=== PATIENT | male | born 1960 | race Caucasian/White ===

== ENCOUNTER 2018-10-24 11:19 | Emergency (ER) | payer OTHER ==
[~2018-10-24] VITALS: Wt 91.9 kg
[~2018-10-24 11:19] MED LIST: IBUP800T48
[2018-10-24 11:21] VITALS: BP 131/78; PULSE 60; RESP 18
--- NOTE | 2018-10-24 12:42 | ERD ---
ER Documentation Chief Complaint Chief Complaint BACK PAIN HPI 58-year-old male, presents to the emergency department, complaining of 1 week with persistent lumbar back pain that started abruptly after the patient was at work pushing heavy objects. The pain is intermittent, 04/21. No medications taken at this time. He denies any distal weakness, numbness or tingling. The patient is kindly requesting spine x-rays. ROS All systems reviewed and are negative except as per history of present illness. Medications Home Meds Active Scripts Baclofen* (Baclofen*) 10 Mg Tablet, 10 MG PO QHS for 7 Days, #7 TAB Prov:MARIS POON MD 10/24/18 Acetaminophen* (Tylenol*) 325 Mg Tablet, 2 TAB PO Q8 PRN for PAIN AND OR ELEVATED TEMP, #20 TAB Prov:MARIS POON MD 10/24/18 Ibuprofen* (Motrin*) 400 Mg Tab, 400 MG PO Q8, #15 TAB Prov:MARIS POON MD 10/24/18 Reported Medications Ibuprofen* (Motrin*) 800 Mg Tab 12/28/10 Allergies Allergies: Coded Allergies: No Known Allergies (Verified Allergy, Mild, 12/28/10) PMhx/Soc Medical and Surgical Hx: pt denies Medical Hx, pt denies Surgical Hx History of Surgery: No Anesthesia Reaction: No Hx Neurological Disorder: No Hx Respiratory Disorders: No Hx Cardiac Disorders: No Hx Psychiatric Problems: No Hx Miscellaneous Medical Probl: No Hx Alcohol Use: No Hx Substance Use: No Hx Tobacco Use: No Smoking Status: Never smoker FmHx Family History: diabetes; No coronary disease Physical Exam Vitals Vital Signs Date Temp Pulse Resp B/P (MAP) Pulse Ox O2 O2 Flow FiO2 Time Delivery Rate 10/24/18 98.3 60 18 131/78 99 11:21 (95) Physical Exam Const: No acute distress Head: Atraumatic Eyes: Normal Conjunctiva ENT: Normal External Ears, Nose and Mouth. Neck: Full range of motion. No meningismus. Resp: Clear to auscultation bilaterally Cardio: Regular rate and rhythm, no murmurs Abd: Soft, non tender, non distended. Normal bowel sounds Skin: No petechiae or rashes Back: Normal inspection, no vertebral tenderness, bilateral lumbar muscle spasm, decreased range of motion for flexion and lateral rotation due to pain. Ext: No cyanosis, or edema Neur: Awake and alert Psych: Normal Mood and Affect Results 24 hrs DIAGNOSTIC IMAGING REPORT Patient: CORIE DELGADO : 1960 Age: 58 Sex: M MR #: [id number] DOS: 10/24/18 1241 Ordering MD: MARIS POON MD Location: [facility] Room/Bed: PROCEDURE: XR Lumbar Spine. CLINICAL INDICATION: Low back pain TECHNIQUE: AP, lateral and cone-down lateral view of the lumbar spine were obtained. COMPARISON: No prior studies are available for comparison. FINDINGS: There is normal vertebral mineralization. No fracture or subluxation is seen. The disc spaces are relatively maintained. Small anterior osteophytes are seen at L3-4. The posterior elements are unremarkable. The soft tissues appear normal. IMPRESSION: Small anterior osteophytes are seen at L3-4. RPTAT:AAJJ Physician Colby Date Time Electronically viewed and signed by Physician Colby on 10/24/2018 12:57 MC/ CC: MARIS POON MD Procedures/MDM Differential diagnosis include but not limited to: lumbar sprain/strain, sciatica, herniated disk, UTI less likely pyelo, kidney stone. Neurovascular exam grossly intact. no clinical findings suggestive of acute infectious process, no acute deformity, no edema, no rashes. Physical examination and clinical presentation consistent most likely with acute lumbar pain most likely secondary to strain. Results and clinical impression discussed with the patient who agrees with management. The patient is stable to be treated outpatient and will be discharged home with recommendations and close monitoring The patient was instructed to follow up with the primary care provider in the next 48h. If symptoms persist, worsen or new symptoms develop, then patient should return to the ED immediately. Instructions explained and given to patient with acknowledgment and demonstrated understanding. Disclaimer: Inadvertent spelling and grammatical errors are likely due to EHR/dictation software use and do not reflect on the overall quality of patient care. Also, please note that the electronic time recorded on this note does not necessarily reflect the actual time of the patient encounter. Departure Diagnosis: Primary Impression: Low back strain Condition: Stable Additional Instructions: Muchas felipe por [facility] para ríos servicio. Esperamos que en ríos visita a la lionel de emergencia ríos problema medico haya sido solucionado y que se sienta mucho mejor. Para estar seguros que ríos mejoria sigue en proceso, le pedimos el favor de hacer larry paty de seguimiento medico con ríos doctor primario en los proximos 2-4 ellis. Lleve con usted estos documentos y las medicinas recetadas. Si [place] sintomas empeoran, NO SE ESPERE, por favor regrese a lionel de emergencia INMEDIATAMENTE. En carlos que usted no tenga un mdico de atencin primaria: Llame al mdico o clnica comunitaria de referencia que aparece abajo eugene las horas de consultorio para hacer larry paty para que le vean. CLINICAS: [facility] [phone] [facility] [phone] [facility] [facility] [phone] [facility] [phone] [facility]. [place] [phone] [address] [facility]. [phone] MARIS CHAVEZ MD Oct 24, 2018 12:42
[2018-10-24] MEDS ORDERED: IBUP-1561 PO (13:20)
[2018-10-24] MEDS ORDERED: ACET325T33 PO (13:20)
[2018-10-24] MEDS ORDERED: BACL10TA PO (13:20)
== END 2018-10-24 13:29 | disposition home or self-care (01) ==
LOC: FTE 11:19
DX: M54.5 Low back pain (principal)
CPT/HCPCS: 72100